=== PATIENT | female | born 1935 | race Hispanic/Latino ===

== ENCOUNTER 2021-09-06 13:17 | Emergency (ER) | payer OTHER, MEDICARE ==
[~2021-09-06] VITALS: Ht 160 cm; Wt 68.0 kg
[2021-09-06] MEDS ORDERED: IBUPROFEN 600 MG TAB PO STA (14:44)
== END 2021-09-06 16:26 | disposition home or self-care (01) ==
LOC: FSED 14:18
DX: S40.012A Contusion of left shoulder, initial encounter (principal); V43.62XA Car passenger injured in collision with other type car in traffic accident, initial encounter; Y92.488 Other paved roadways as the place of occurrence of the external cause; I10 Essential (primary) hypertension; E03.9 Hypothyroidism, unspecified; Z85.038 Personal history of other malignant neoplasm of large intestine
CPT/HCPCS: 99282